=== PATIENT | female | born 1940 | race African-American/Black ===

== ENCOUNTER → 2018-03-12 | Day surgery (SDC) | payer MEDICARE ==
[2018-03-05 15:40] LABS: BASOPHILS % 0.5 % (0.0-1.0); EOSINOPHILS # (AUTO) 0.1 (0.0-0.4); HEMATOCRIT 36.2 % (34.2-44.1); HEMOGLOBIN 11.7 g/dL (12.0-16.0); LYMPHOCYTES # (AUTO) 2.1 (1.0-3.2); LYMPHOCYTES % 37.2 % (18.0-39.1); MEAN CORPUSCULAR HEMOGLOBIN 27.5 pg (28-32); MEAN CORPUSCULAR HGB CONC 32.3 g/dL (31-35); MONOCYTES # (AUTO) 0.4 (0.2-0.8); MONOCYTES % 7.4 % (4.4-11.3); NEUTROPHILS # (AUTO) 2.9 (2.1-6.9); NEUTROPHILS % 52.7 % (38.7-80.0); PLATELET COUNT 290 x10e3/uL (140-360); RED BLOOD COUNT 4.26 x10e6/uL (3.6-5.1); RED CELL DISTRIBUTION WIDTH 14.8 % (11.7-14.4)
[~2018-03-12] MED LIST: AMLODIPINE BESYL5 MG PO; DEXTROSE 5% 250ML 250 ML IV ONE; FENTANYL CITRATE/PF 100MCG/2 ML INJ ONE; GABAPENTIN100 MG PO; HYDROCHLOROTHIA25 MG PO; LEVEMIR100 UNIT/1 SQ; LISINOPRIL2.5 MG PO; LISINOPRIL40 MG PO; METFORMIN HCL500 MG PO; METOPROLOL SUCC25 MG PO; MIDAZOLAM HCL 2 MG/2 ML VIAL ONE; OR PHACO EYE KIT ONE; PREOP PHACO EYE KIT ONE
== END | disposition home or self-care (01) ==
LOC: OR 12:08
PROVIDERS: ATTEND Ophthalmology
DX: H25.12 Age-related nuclear cataract, left eye (principal); I10 Essential (primary) hypertension; E78.2 Mixed hyperlipidemia; I25.10 Atherosclerotic heart disease of native coronary artery without angina pectoris; E28.39 Other primary ovarian failure; E11.51 Type 2 diabetes mellitus with diabetic peripheral angiopathy without gangrene; E11.59 Type 2 diabetes mellitus with other circulatory complications; K21.9 Gastro-esophageal reflux disease without esophagitis; R06.02 Shortness of breath; Z88.8 Allergy status to other drugs, medicaments and biological substances; Z01.812 Encounter for preprocedural laboratory examination; Z79.4 Long term (current) use of insulin; Z79.02 Long term (current) use of antithrombotics/antiplatelets
CPT/HCPCS: 36415 ×2; 66984; 82948; 85025; J2250; V2632

== ENCOUNTER → 2021-04-12 | Outpatient (CLI) | payer MEDICARE ==
[~2021-04-12] MED LIST changes: -DEXTROSE 5% 250ML 250 ML IV ONE; +DIATRIZOATE MEGL/DIATRIZOA SOD 30 ML BTL PO ONE; -FENTANYL CITRATE/PF 100MCG/2 ML INJ ONE; +IOPAMIDOL 370 MG/ML 200 ML INFUS..BTL INJ ONE; -MIDAZOLAM HCL 2 MG/2 ML VIAL ONE; -OR PHACO EYE KIT ONE; -PREOP PHACO EYE KIT ONE; +SODIUM CHLORIDE 0.9% 50ML 50 ML ONE
[2021-04-12 15:19] LABS: BASOPHILS % 0.8 % (0.0-1.0); EOSINOPHILS # (AUTO) 0.1 (0.0-0.4); EOSINOPHILS % 1.2 % (0.0-6.0); HEMATOCRIT 34.1 % (34.2-44.1); HEMOGLOBIN 11.1 g/dL (12.0-16.0); LYMPHOCYTES # (AUTO) 1.6 (1.0-3.2); LYMPHOCYTES % 33.1 % (18.0-39.1); MEAN CORPUSCULAR HEMOGLOBIN 27.7 pg (28-32); MEAN CORPUSCULAR HGB CONC 32.6 g/dL (31-35); MONOCYTES # (AUTO) 0.6 (0.2-0.8); MONOCYTES % 11.5 % (4.4-11.3); NEUTROPHILS # (AUTO) 2.6 (2.1-6.9); NEUTROPHILS % 53.2 % (38.7-80.0); PLATELET COUNT 368 x10e3/uL (140-360); RED BLOOD COUNT 4.01 x10e6/uL (3.6-5.1); RED CELL DISTRIBUTION WIDTH 13.9 % (11.7-14.4)
[2021-04-12 15:40] LABS: ALBUMIN 4.8 g/dL (3.5-5.0); ALBUMIN/GLOBULIN RATIO 1.2 (0.8-2.0); ANION GAP 19.5 mmol/L (8-16); CALCIUM 10.5 mg/dL (8.4-10.2); CREATININE, SERUM 1.18 mg/dL (0.57-1.11); POTASSIUM 4.5 mmol/L (3.5-5.1)
== END ==
LOC: CT 12:51
PROVIDERS: ATTEND Surgery
DX: R19.00 Intra-abdominal and pelvic swelling, mass and lump, unspecified site (principal)
CPT/HCPCS: 36415; 71046; 74177; 80053; 82948; 85025; 86304; Q9967

== ENCOUNTER 2021-05-12 06:54 | Inpatient (IN) | payer MEDICARE, OTHER ==
[2021-05-10 15:08] LABS: BASOPHILS % 0.2 % (0.0-1.0); EOSINOPHILS # (AUTO) 0.1 (0.0-0.4); EOSINOPHILS % 0.9 % (0.0-6.0); HEMATOCRIT 31.3 % (34.2-44.1); HEMOGLOBIN 10.2 g/dL (12.0-16.0); LYMPHOCYTES # (AUTO) 1.2 (1.0-3.2); LYMPHOCYTES % 21.6 % (18.0-39.1); MEAN CORPUSCULAR HEMOGLOBIN 27.6 pg (28-32); MEAN CORPUSCULAR HGB CONC 32.6 g/dL (31-35); MEAN CORPUSCULAR VOLUME 84.6 fL (81-99); MONOCYTES # (AUTO) 0.4 (0.2-0.8); MONOCYTES % 7.8 % (4.4-11.3); NEUTROPHILS # (AUTO) 3.8 (2.1-6.9); NEUTROPHILS % 69.1 % (38.7-80.0); PLATELET COUNT 339 x10e3/uL (140-360); RED CELL DISTRIBUTION WIDTH 13.9 % (11.7-14.4)
[2021-05-10 15:33] LABS: ANION GAP 13.1 mmol/L (8-16); CALCIUM 9.8 mg/dL (8.4-10.2); CREATININE, SERUM 1.03 mg/dL (0.57-1.11); POTASSIUM 4.1 mmol/L (3.5-5.1)
[2021-05-12] VITALS (7 sets, daily range): BP systolic 110–127; BP diastolic 66–89
[~2021-05-12] VITALS: Ht 160 cm; Wt 69.5 kg
[~2021-05-12 06:54] MED LIST changes: -DIATRIZOATE MEGL/DIATRIZOA SOD 30 ML BTL PO ONE; -IOPAMIDOL 370 MG/ML 200 ML INFUS..BTL INJ ONE; -SODIUM CHLORIDE 0.9% 50ML 50 ML ONE
[2021-05-12] MEDS ORDERED: OXYBUTYNIN CHLOR5 MG PO (07:37)
[2021-05-12 08:57] LABS: ANION GAP 16.2 mmol/L (8-16); CREATININE, SERUM 1.45 mg/dL (0.57-1.11); POTASSIUM 4.2 mmol/L (3.5-5.1)
[2021-05-12] MEDS ORDERED: HYDROMORPHONE 1MG/1ML INJ ONE (09:59)
[2021-05-12] MEDS ORDERED: ACETAMINOPHEN 1000 MG/100 ML 100 ML IV ONE (10:00)
[2021-05-12] MEDS ORDERED: LIDOCAINE 1% W/EPINEPHRINE 20 ML VIAL ONE (11:04)
[2021-05-12] MEDS ORDERED: SUGAMMADEX SODIUM 200 MG/2 ML VIAL IV ONE (12:10)
[2021-05-12] MEDS ORDERED: POVIDONE IODINE 0.05% 0.05 % ML PO ONE (12:55)
[2021-05-12] MEDS ORDERED: PROPOFOL IV EMULSION 10 MG/ML 20 ML VIAL ONE (12:55)
[2021-05-12] MEDS ORDERED: DEXAMETHASONE SOD PHOS INJ 4 MG/ML VIAL ONE (12:55)
[2021-05-12] MEDS ORDERED: KETOROLAC TROMETHAMINE 30 MG/ML VIAL ONE (12:55)
[2021-05-12] MEDS ORDERED: SEVOFLURANE INHAL SOLN 250 ML PEN BTL ONE (12:55)
[2021-05-12] MEDS ORDERED: GLYCOPYRROLATE INJ 0.2 MG/ML VIAL ONE (12:55)
[2021-05-12] MEDS ORDERED: ONDANSETRON HCL INJ 2MG/ML 2ML 2 MG/ML VIAL ONE (12:55)
[2021-05-12] MEDS ORDERED: NEOSTIGMINE 1 MG/ML 10ML VIAL ONE (12:55)
[2021-05-12] MEDS ORDERED: ROCURONIUM BROMIDE 10 MG/ML 5ML VIAL IV ONE (12:55)
[2021-05-12] MEDS ORDERED: LIDOCAINE HCL 2% LOCAL INJ 5 ML SDV VIAL INJ ONE (12:55)
[2021-05-12] MEDS ORDERED: EPHEDRINE SULFATE INJ 50 MG/ML VIAL ONE (12:55)
[2021-05-12] MEDS ORDERED: FENTANYL CITRATE/PF 100MCG/2 ML INJ ONE (13:13)
[2021-05-12] MEDS: DEXTROSE 5%/LACTATED RINGERS 1,000 ML IV SCH (16:07)
[2021-05-12] MEDS: METFORMIN HCL 500 MG TAB PO SCH (16:54)
[2021-05-12] MEDS: HYDROMORPHONE 1MG/1ML INJ IV PRN (22:27)
[2021-05-13] VITALS (8 sets, daily range): BP systolic 91–108; BP diastolic 62–75
[2021-05-13] MEDS: DEXTROSE 5%/LACTATED RINGERS 1,000 ML IV SCH ×2 (03:53→08:54)
[2021-05-13 05:03] LABS: BASOPHILS % 0.2 % (0.0-1.0); HEMATOCRIT 24.7 % (34.2-44.1); HEMOGLOBIN 8.1 g/dL (12.0-16.0); LYMPHOCYTES # (AUTO) 1.1 (1.0-3.2); LYMPHOCYTES % 13.1 % (18.0-39.1); MEAN CORPUSCULAR HEMOGLOBIN 27.3 pg (28-32); MEAN CORPUSCULAR HGB CONC 32.8 g/dL (31-35); MEAN CORPUSCULAR VOLUME 83.2 fL (81-99); MONOCYTES # (AUTO) 0.7 (0.2-0.8); MONOCYTES % 8.8 % (4.4-11.3); NEUTROPHILS # (AUTO) 6.4 (2.1-6.9); NEUTROPHILS % 77.7 % (38.7-80.0); PLATELET COUNT 300 x10e3/uL (140-360); RED BLOOD COUNT 2.97 x10e6/uL (3.6-5.1)
[2021-05-13 05:24] LABS: ANION GAP 14.3 mmol/L (8-16); CALCIUM 8.8 mg/dL (8.4-10.2); CREATININE, SERUM 1.11 mg/dL (0.57-1.11); POTASSIUM 4.3 mmol/L (3.5-5.1)
[2021-05-13] MEDS: HYDROMORPHONE 1MG/1ML INJ IV PRN ×2 (08:51→21:54)
[2021-05-13] MEDS: AMLODIPINE BESYLATE 5 MG TAB PO SCH (08:54)
[2021-05-13] MEDS: METFORMIN HCL 500 MG TAB PO SCH ×2 (08:54→17:40)
[2021-05-13] MEDS: METOPROLOL SUCCINATE 25 MG TAB XL PO SCH (08:54)
[2021-05-13] MEDS ORDERED: HYDROCHLOROTHIAZIDE 25 MG TAB PO SCH (09:00)
[2021-05-13] MEDS: HYDROCODONE/APAP 7.5MG-325MG 1 EA TAB PO PRN ×2 (17:35→17:41)
[2021-05-14] VITALS (15 sets, daily range): BP systolic 91–107; BP diastolic 56–82
[2021-05-14] MEDS: ZOLPIDEM TARTRATE 5 MG TAB PO PRN (00:05)
[2021-05-14] MEDS ORDERED: FUROSEMIDE INJ 10 MG/ML 4 ML VIAL IV ONE (05:45)
[2021-05-14 05:59] LABS: BASOPHILS % 0.4 % (0.0-1.0); EOSINOPHILS % 0.1 % (0.0-6.0); HEMATOCRIT 29.9 % (34.2-44.1); HEMOGLOBIN 9.5 g/dL (12.0-16.0); LYMPHOCYTES # (AUTO) 1.5 (1.0-3.2); LYMPHOCYTES % 18.3 % (18.0-39.1); MEAN CORPUSCULAR HEMOGLOBIN 27.3 pg (28-32); MEAN CORPUSCULAR HGB CONC 31.8 g/dL (31-35); MEAN CORPUSCULAR VOLUME 85.9 fL (81-99); MONOCYTES # (AUTO) 0.6 (0.2-0.8); MONOCYTES % 6.8 % (4.4-11.3); NEUTROPHILS # (AUTO) 6.1 (2.1-6.9); PLATELET COUNT 342 x10e3/uL (140-360); RED BLOOD COUNT 3.48 x10e6/uL (3.6-5.1); RED CELL DISTRIBUTION WIDTH 14.5 % (11.7-14.4)
[2021-05-14] MEDS ORDERED: ALBUTEROL/IPRATROPIUM 3 ML NEB ONE (06:14)
[2021-05-14] MEDS ORDERED: ASPIRIN 81 MG CHEW TAB PO ONE (06:15)
[2021-05-14 06:28] LABS: ANION GAP 16.4 mmol/L (8-16); CALCIUM 9.3 mg/dL (8.4-10.2); CREATININE, SERUM 0.99 mg/dL (0.57-1.11); POTASSIUM 4.4 mmol/L (3.5-5.1)
[2021-05-14 06:51] LABS: CREATINE KINASE MB 21.9 ng/mL (0-5.0)
[2021-05-14] MEDS ORDERED: IOPAMIDOL 370 MG/ML 200 ML INFUS..BTL INJ ONE (07:27)
[2021-05-14] MEDS ORDERED: SODIUM CHLORIDE 0.9% 50ML 0 ML ONE (07:28)
[2021-05-14] MEDS ORDERED: VANCOMYCIN 1GM/NS 250 ML 250 ML IV ONE (08:00)
[2021-05-14] MEDS: METFORMIN HCL 500 MG TAB PO SCH ×2 (08:00→17:07)
[2021-05-14] MEDS: METOPROLOL SUCCINATE 25 MG TAB XL PO SCH (09:00)
[2021-05-14] MEDS: AMLODIPINE BESYLATE 5 MG TAB PO SCH (09:00)
[2021-05-14 09:22] LABS: ABG HCO3 21 mmol/L (22-26); ABG PCO2 32 mmHg (35-45); ABG PH 7.44 (7.35-7.45); ABG PO2 136 mmHg (80-105); ABG TCO2 22
[2021-05-14] MEDS ORDERED: Vancomycin IV 1 GM in SODIUM CHLORIDE 0.9% 250ML 250 ML IV ONE (10:00)
[2021-05-14 10:08] LABS: ABG HCO3 17 mmol/L (22-26); ABG PCO2 45 mmHg (35-45); ABG PH 7.19 (7.35-7.45); ABG PO2 66 mmHg (80-105); ABG TCO2 18
[2021-05-14] MEDS ORDERED: CLOPIDOGREL BISULFATE 75 MG TAB PO ONE (10:30)
[2021-05-14] MEDS: CEFEPIME 1 GM in SODIUM CHLORIDE 0.9% 50ML 50 ML IV SCH ×2 (10:31→21:32)
[2021-05-14] MEDS: ASPIRIN 81 MG ENTERIC COATED PO SCH (11:00)
[2021-05-14] MEDS: HYDROCODONE/APAP 7.5MG-325MG 1 EA TAB PO PRN (11:06)
[2021-05-14 12:02] LABS: CREATINE KINASE MB 45.9 ng/mL (0-5.0)
[2021-05-14] MEDS: VALSARTAN/SACUBITRIL 24MG/26MG 1 EA TAB PO SCH (15:04)
[2021-05-14] MEDS: FUROSEMIDE INJ 10 MG/ML 2 ML VIAL IV SCH (18:02)
[2021-05-14] MEDS ORDERED: METOPROLOL SUCCINATE 25 MG TAB XL PO ONE (20:00)
[2021-05-14] MEDS: HYDROMORPHONE 1MG/1ML INJ IV PRN (21:11)
[2021-05-15] VITALS (26 sets, daily range): BP systolic 78–122; BP diastolic 47–80
[2021-05-15] MEDS: VALSARTAN/SACUBITRIL 24MG/26MG 1 EA TAB PO SCH ×2 (02:45→14:45)
[2021-05-15] MEDS: FUROSEMIDE INJ 10 MG/ML 2 ML VIAL IV SCH (05:31)
[2021-05-15] MEDS: HYDROCODONE/APAP 7.5MG-325MG 1 EA TAB PO PRN ×3 (05:38→22:04)
[2021-05-15] MEDS: METFORMIN HCL 500 MG TAB PO SCH ×2 (08:00→17:00)
[2021-05-15 08:21] LABS: BASOPHILS % 0.3 % (0.0-1.0); EOSINOPHILS % 0.4 % (0.0-6.0); HEMATOCRIT 25.9 % (34.2-44.1); HEMOGLOBIN 8.6 g/dL (12.0-16.0); LYMPHOCYTES # (AUTO) 1.3 (1.0-3.2); LYMPHOCYTES % 19.4 % (18.0-39.1); MEAN CORPUSCULAR HEMOGLOBIN 27.5 pg (28-32); MEAN CORPUSCULAR HGB CONC 33.2 g/dL (31-35); MEAN CORPUSCULAR VOLUME 82.7 fL (81-99); MONOCYTES # (AUTO) 0.5 (0.2-0.8); MONOCYTES % 6.9 % (4.4-11.3); NEUTROPHILS % 72.7 % (38.7-80.0); PLATELET COUNT 292 x10e3/uL (140-360); RED BLOOD COUNT 3.13 x10e6/uL (3.6-5.1); RED CELL DISTRIBUTION WIDTH 14.2 % (11.7-14.4)
[2021-05-15] MEDS: METOPROLOL SUCCINATE 25 MG TAB XL PO SCH (09:00)
[2021-05-15] MEDS: CLOPIDOGREL BISULFATE 75 MG TAB PO SCH (11:33)
[2021-05-15] MEDS: ASPIRIN 81 MG ENTERIC COATED PO SCH (11:33)
[2021-05-16] VITALS (30 sets, daily range): BP systolic 102–145; BP diastolic 62–92
[2021-05-16] MEDS ORDERED: SODIUM CHLORIDE 0.9% 1000ML 1,000 ML IV SCH (01:00)
[2021-05-16] MEDS: VALSARTAN/SACUBITRIL 24MG/26MG 1 EA TAB PO SCH ×2 (02:18→15:29)
[2021-05-16 05:06] LABS: BASOPHILS % 0.8 % (0.0-1.0); EOSINOPHILS # (AUTO) 0.1 (0.0-0.4); EOSINOPHILS % 2.5 % (0.0-6.0); HEMOGLOBIN 8.5 g/dL (12.0-16.0); LYMPHOCYTES % 18.9 % (18.0-39.1); MEAN CORPUSCULAR HEMOGLOBIN 27.2 pg (28-32); MEAN CORPUSCULAR HGB CONC 32.7 g/dL (31-35); MEAN CORPUSCULAR VOLUME 83.3 fL (81-99); MONOCYTES # (AUTO) 0.5 (0.2-0.8); MONOCYTES % 9.4 % (4.4-11.3); NEUTROPHILS # (AUTO) 3.6 (2.1-6.9); NEUTROPHILS % 68.2 % (38.7-80.0); PLATELET COUNT 307 x10e3/uL (140-360); RED BLOOD COUNT 3.12 x10e6/uL (3.6-5.1); RED CELL DISTRIBUTION WIDTH 14.1 % (11.7-14.4)
[2021-05-16 05:12] LABS: INR 1.08; PROTHROMBIN TIME 14.7 seconds (11.9-14.5)
[2021-05-16 05:13] LABS: PARTIAL THROMBOPLASTIN TIME 44.5 seconds (23.8-35.5)
[2021-05-16 05:26] LABS: ALBUMIN 2.8 g/dL (3.5-5.0); ALBUMIN/GLOBULIN RATIO 0.9 (0.8-2.0); ANION GAP 13.2 mmol/L (8-16); CALCIUM 8.4 mg/dL (8.4-10.2); CREATININE, SERUM 0.9 mg/dL (0.57-1.11); POTASSIUM 3.2 mmol/L (3.5-5.1)
[2021-05-16] MEDS: ASPIRIN 81 MG ENTERIC COATED PO SCH (08:46)
[2021-05-16] MEDS: METOPROLOL SUCCINATE 25 MG TAB XL PO SCH (08:46)
[2021-05-16] MEDS: CLOPIDOGREL BISULFATE 75 MG TAB PO SCH (08:46)
[2021-05-16] MEDS ORDERED: LIDOCAINE HCL 2% LOCAL 20 ML VIAL ONE (09:49)
[2021-05-16] MEDS ORDERED: IOPAMIDOL 370 MG/ML 200 ML INFUS..BTL INJ ONE (09:49)
[2021-05-16] MEDS ORDERED: MIDAZOLAM HCL 2 MG/2 ML VIAL ONE (09:49)
[2021-05-16] MEDS ORDERED: FENTANYL CITRATE/PF 100MCG/2 ML INJ ONE (09:49)
[2021-05-16] MEDS ORDERED: SODIUM CHLORIDE 0.9% 1000ML 1,000 ML ONE (09:49)
[2021-05-16] MEDS ORDERED: HEPARIN SOD/SOD CHLORIDE 2,000 ML ONE (09:49)
[2021-05-16] MEDS ORDERED: POTASSIUM CHLORIDE 20MEQ/100ML 100 ML IV ONE (10:30)
[2021-05-16] MEDS: HYDROCODONE/APAP 7.5MG-325MG 1 EA TAB PO PRN ×2 (12:55→21:44)
[2021-05-16] MEDS: HYDROMORPHONE 1MG/1ML INJ IV PRN ×2 (13:20→22:47)
[2021-05-17] VITALS (29 sets, daily range): BP systolic 78–133; BP diastolic 54–109
[2021-05-17] MEDS: VALSARTAN/SACUBITRIL 24MG/26MG 1 EA TAB PO SCH ×3 (03:04→22:04)
[2021-05-17 04:39] LABS: BASOPHILS % 0.4 % (0.0-1.0); EOSINOPHILS # (AUTO) 0.2 (0.0-0.4); EOSINOPHILS % 3.9 % (0.0-6.0); HEMATOCRIT 25.8 % (34.2-44.1); HEMOGLOBIN 8.3 g/dL (12.0-16.0); LYMPHOCYTES # (AUTO) 0.9 (1.0-3.2); LYMPHOCYTES % 18.4 % (18.0-39.1); MEAN CORPUSCULAR HEMOGLOBIN 27.2 pg (28-32); MEAN CORPUSCULAR HGB CONC 32.2 g/dL (31-35); MEAN CORPUSCULAR VOLUME 84.6 fL (81-99); MONOCYTES # (AUTO) 0.5 (0.2-0.8); MONOCYTES % 9.3 % (4.4-11.3); NEUTROPHILS # (AUTO) 3.3 (2.1-6.9); NEUTROPHILS % 67.8 % (38.7-80.0); PLATELET COUNT 307 x10e3/uL (140-360); RED BLOOD COUNT 3.05 x10e6/uL (3.6-5.1); RED CELL DISTRIBUTION WIDTH 14.3 % (11.7-14.4)
[2021-05-17 04:56] LABS: CHOL/HDL RATIO 3.6 (3.0-3.6)
[2021-05-17 05:03] LABS: ALBUMIN 2.8 g/dL (3.5-5.0); ALBUMIN/GLOBULIN RATIO 0.8 (0.8-2.0); ANION GAP 15.4 mmol/L (8-16); CALCIUM 8.6 mg/dL (8.4-10.2); CREATININE, SERUM 0.84 mg/dL (0.57-1.11); POTASSIUM 3.4 mmol/L (3.5-5.1)
[2021-05-17] MEDS: HYDROCODONE/APAP 7.5MG-325MG 1 EA TAB PO PRN ×2 (05:14→22:04)
[2021-05-17] MEDS: CLOPIDOGREL BISULFATE 75 MG TAB PO SCH (08:26)
[2021-05-17] MEDS: ASPIRIN 81 MG ENTERIC COATED PO SCH (08:26)
[2021-05-17] MEDS: METOPROLOL SUCCINATE 25 MG TAB XL PO SCH (08:27)
[2021-05-17] MEDS: HYDROMORPHONE 1MG/1ML INJ IV PRN ×2 (10:14→18:12)
[2021-05-17] MEDS: BISACODYL 5 MG TAB EC PO SCH (15:07)
[2021-05-17] MEDS: ZOLPIDEM TARTRATE 5 MG TAB PO PRN (22:04)
[2021-05-18] VITALS (7 sets, daily range): BP systolic 111–140; BP diastolic 62–83
[2021-05-18] MEDS: HYDROMORPHONE 1MG/1ML INJ IV PRN ×3 (00:39→09:19)
[2021-05-18 05:41] LABS: BASOPHILS % 0.6 % (0.0-1.0); EOSINOPHILS # (AUTO) 0.2 (0.0-0.4); HEMATOCRIT 27.2 % (34.2-44.1); HEMOGLOBIN 8.9 g/dL (12.0-16.0); LYMPHOCYTES # (AUTO) 1.2 (1.0-3.2); LYMPHOCYTES % 23.8 % (18.0-39.1); MEAN CORPUSCULAR HEMOGLOBIN 27.6 pg (28-32); MEAN CORPUSCULAR HGB CONC 32.7 g/dL (31-35); MEAN CORPUSCULAR VOLUME 84.5 fL (81-99); MONOCYTES # (AUTO) 0.5 (0.2-0.8); MONOCYTES % 10.8 % (4.4-11.3); NEUTROPHILS # (AUTO) 2.9 (2.1-6.9); NEUTROPHILS % 59.6 % (38.7-80.0); PLATELET COUNT 355 x10e3/uL (140-360); RED BLOOD COUNT 3.22 x10e6/uL (3.6-5.1); RED CELL DISTRIBUTION WIDTH 14.1 % (11.7-14.4)
[2021-05-18 06:10] LABS: ALBUMIN 2.8 g/dL (3.5-5.0); ALBUMIN/GLOBULIN RATIO 0.8 (0.8-2.0); ANION GAP 16.3 mmol/L (8-16); CALCIUM 9.3 mg/dL (8.4-10.2); CREATININE, SERUM 0.88 mg/dL (0.57-1.11); POTASSIUM 3.3 mmol/L (3.5-5.1)
[2021-05-18] MEDS: VALSARTAN/SACUBITRIL 24MG/26MG 1 EA TAB PO SCH ×2 (09:00→20:36)
[2021-05-18] MEDS: ASPIRIN 81 MG ENTERIC COATED PO SCH (09:00)
[2021-05-18] MEDS: METOPROLOL SUCCINATE 25 MG TAB XL PO SCH (09:00)
[2021-05-18] MEDS: CLOPIDOGREL BISULFATE 75 MG TAB PO SCH (10:39)
[2021-05-18] MEDS: EZETIMIBE 10 MG TAB PO SCH (11:00)
[2021-05-18] MEDS: BISACODYL 5 MG TAB EC PO SCH (17:21)
[2021-05-18] MEDS: HYDROCODONE/APAP 7.5MG-325MG 1 EA TAB PO PRN (20:15)
[2021-05-19] VITALS: BP 112/58
[2021-05-19 04:00] VITALS: BP 113/65
[2021-05-19 04:32] VITALS: BP 126/79
[2021-05-19 07:45] VITALS: BP 120/71
[2021-05-19 07:57] VITALS: BP 120/71
[2021-05-19] MEDS: ASPIRIN 81 MG ENTERIC COATED PO SCH (08:17)
[2021-05-19] MEDS: VALSARTAN/SACUBITRIL 24MG/26MG 1 EA TAB PO SCH (08:17)
[2021-05-19] MEDS: CLOPIDOGREL BISULFATE 75 MG TAB PO SCH (08:17)
[2021-05-19] MEDS: EZETIMIBE 10 MG TAB PO SCH (08:17)
[2021-05-19] MEDS: METOPROLOL SUCCINATE 25 MG TAB XL PO SCH (08:18)
[2021-05-19 11:38] VITALS: BP 123/73
== END 2021-05-19 15:22 | disposition home health service (06) | DRG 742 ==
LOC: OR 06:54 → PACU V 14:48 → MED/SURG 14:49 → ICU 05-14 15:04 → MED/SURG3 05-17 18:45
PROVIDERS: ADMIT Surgery; ATTEND Surgery
PROC: 0UB10ZZ Excision of Left Ovary, Open Approach (ICD-10-PCS; principal; 2021-05-12 09:22)
PROC: 5A09357 Assistance with Respiratory Ventilation, Less than 24 Consecutive Hours, Continuous Positive Airway Pressure (ICD-10-PCS; 2021-05-14)
PROC: 02HV33Z Insertion of Infusion Device into Superior Vena Cava, Percutaneous Approach (ICD-10-PCS; 2021-05-14)
PROC: 027034Z Dilation of Coronary Artery, One Artery with Drug-eluting Intraluminal Device, Percutaneous Approach (ICD-10-PCS; 2021-05-16)
PROC: 4A023N7 Measurement of Cardiac Sampling and Pressure, Left Heart, Percutaneous Approach (ICD-10-PCS; 2021-05-16)
PROC: B2111ZZ Fluoroscopy of Multiple Coronary Arteries using Low Osmolar Contrast (ICD-10-PCS; 2021-05-16)
PROC: B2151ZZ Fluoroscopy of Left Heart using Low Osmolar Contrast (ICD-10-PCS; 2021-05-16)
DX: D27.1 Benign neoplasm of left ovary (principal); I21.A1 Myocardial infarction type 2; I50.23 Acute on chronic systolic (congestive) heart failure; J96.02 Acute respiratory failure with hypercapnia; J96.01 Acute respiratory failure with hypoxia; I13.0 Hypertensive heart and chronic kidney disease with heart failure and stage 1 through stage 4 chronic kidney disease, or unspecified chronic kidney disease; E87.2 Acidosis; N18.9 Chronic kidney disease, unspecified; Z87.891 Personal history of nicotine dependence; J45.909 Unspecified asthma, uncomplicated; I25.118 Atherosclerotic heart disease of native coronary artery with other forms of angina pectoris; N99.4 Postprocedural pelvic peritoneal adhesions; Z95.5 Presence of coronary angioplasty implant and graft; Z90.710 Acquired absence of both cervix and uterus; E11.22 Type 2 diabetes mellitus with diabetic chronic kidney disease; Z79.84 Long term (current) use of oral hypoglycemic drugs; E78.5 Hyperlipidemia, unspecified; D64.9 Anemia, unspecified; Z88.8 Allergy status to other drugs, medicaments and biological substances; I25.82 Chronic total occlusion of coronary artery
CPT/HCPCS: 36415; 36569; 36600; 71045; 76937; 80048; 80053; 80061; 82550; 82553; 82805; 82948; 83036; 83605; 83880; 84484; 85025; 85610; 85730; 86850; 86900; 87040; 87086; 88304; 88307; 92928; 93005; 93306; 93458; 94640; 94660; 97139; 99152; 99153; 99251; C1725; C1760; C1769; C1876; J0692; J1100; J1170; J1885; J1940; J2001; J2250; J2405; J2710; J3010; J3370; J3480; J7030; J7050; Q9967